=== PATIENT | male | born 1935 | race Caucasian/White ===

== ENCOUNTER 2022-03-20 09:45 | Outpatient (RCR) | payer MEDICARE, BC, SELFPAY ==
[2022-03-20 10:25] LABS: Basophils Percent Auto 1.6 % (0.0-3.0); Eosinophils Percent Auto 5.8 % (0.0-7.0); Hematocrit 34.8 % (37.0-53.0); Immature Granulocytes Abs Auto 0.01 K/uL (0.00-0.30); Lymphocytes Percent Auto 18.1 % (20-44); Mean Corpuscular HGB Conc 29 gm/dL (32-36); Mean Corpuscular Hemoglobin 29 pg (26-34); Mean Corpuscular Volume 102 fL (80-100); Monocytes Percent Auto 11.5 % (0.0-11.0); Neutrophils Percent Auto 62.6 % (42.0-72.0); Platelet Count* 350 K/uL (140-440); RDW Coefficient of Variation % 17.5 % (11.5-15.5); Red Blood Count 3.43 m/uL (4.30-5.90); White Blood Count* 2.43 K/uL (4.50-11.00)
[2022-03-20 10:26] LABS: Slide Review Reflex No
[2022-03-20 10:33] LABS: Albumin* 3.9 g/dL (3.3-5.0); Chloride* 109 mmol/L (96-114); Sodium* 139 mmol/L (135-149)
[2022-03-20 10:34] LABS: Potassium* 4.4 mmol/L (3.6-5.1)
[2022-03-20 10:35] LABS: Creatinine* 1.2 mg/dL (0.5-1.5); Estimated Glomerular Filt Rate 59 ml/min
[2022-03-20 10:36] LABS: Alanine Aminotransferase* 25 U/L (4-50); Alkaline Phosphatase* 135 U/L (40-150); Aspartate Amino Transferase* 30 U/L (12-35); Bilirubin Total* 0.4 mg/dL (0.1-1.5); Blood Urea Nitrogen* 28 mg/dL (7-30); Carbon Dioxide* 22 mmol/L (20-32); Glucose* 102 mg/dL (60-115); Lactate Dehydrogenase* 506 U/L (313-618); Total Protein* 6.3 g/dL (6.0-8.3)
[2022-03-20 10:37] LABS: Calcium* 8.4 mg/dL (8.4-10.6)
== END 2022-04-01 23:59 | disposition home or self-care (01) ==
LOC: CCIC 09:45
PROVIDERS: PCP Family Medicine; Visit Provider Internal Medicine Hematology & Oncology
DX: D45 Polycythemia vera (principal); R01.1 Cardiac murmur, unspecified; G62.9 Polyneuropathy, unspecified; M25.472 Effusion, left ankle; M25.471 Effusion, right ankle
CPT/HCPCS: 36415; 80053; 83615; 85025; 99212; 99213; 99214

== ENCOUNTER 2022-11-07 09:00 | Outpatient (RCR) | payer MEDICARE, BC, SELFPAY ==
[2022-05-16 10:03] LABS: Basophils Percent Auto 1.3 % (0.0-3.0); Eosinophils Percent Auto 9.1 % (0.0-7.0); Hematocrit 34.8 % (37.0-53.0); Hemoglobin* 9.8 gm/dL (13.5-17.5); Immature Granulocytes Abs Auto 0.02 K/uL (0.00-0.30); Lymphocytes Percent Auto 15.2 % (20-44); Mean Corpuscular HGB Conc 28 gm/dL (32-36); Mean Corpuscular Hemoglobin 26 pg (26-34); Mean Corpuscular Volume 94 fL (80-100); Monocytes Percent Auto 9.4 % (0.0-11.0); Neutrophils Percent Auto 64.4 % (42.0-72.0); Platelet Count* 485 K/uL (140-440); RDW Coefficient of Variation % 17.5 % (11.5-15.5); Red Blood Count 3.71 m/uL (4.30-5.90); White Blood Count* 3.09 K/uL (4.50-11.00)
[2022-05-16 10:04] LABS: Slide Review Reflex No
[2022-05-16 10:13] LABS: Albumin* 4.2 g/dL (3.3-5.0); Chloride* 107 mmol/L (96-114)
[2022-05-16 10:14] LABS: Potassium* 4.6 mmol/L (3.6-5.1); Sodium* 139 mmol/L (135-149)
[2022-05-16 10:16] LABS: Alkaline Phosphatase* 138 U/L (40-150); Aspartate Amino Transferase* 23 U/L (12-35); Bilirubin Total* 0.3 mg/dL (0.1-1.5); Blood Urea Nitrogen* 23 mg/dL (7-30); Carbon Dioxide* 23 mmol/L (20-32); Creatinine* 1.1 mg/dL (0.5-1.5); Estimated Glomerular Filt Rate 66 ml/min; Glucose* 92 mg/dL (60-115)
[2022-05-16 10:17] LABS: Alanine Aminotransferase* 16 U/L (4-50); Calcium* 8.7 mg/dL (8.4-10.6); Lactate Dehydrogenase* 483 U/L (313-618)
[2022-07-17 09:57] LABS: Basophils Percent Auto 2.5 % (0.0-3.0); Eosinophils Percent Auto 5.4 % (0.0-7.0); Hematocrit 32.5 % (37.0-53.0); Hemoglobin* 8.9 gm/dL (13.5-17.5); Immature Granulocytes Pct Auto 0.4 %; Lymphocytes Percent Auto 19.2 % (20-44); Mean Corpuscular HGB Conc 27 gm/dL (32-36); Mean Corpuscular Hemoglobin 25 pg (26-34); Mean Corpuscular Volume 91 fL (80-100); Monocytes Percent Auto 9.2 % (0.0-11.0); Neutrophils Percent Auto 63.3 % (42.0-72.0); Platelet Count* 493 K/uL (140-440); RDW Coefficient of Variation % 20.4 % (11.5-15.5); Red Blood Count 3.58 m/uL (4.30-5.90)
[2022-07-17 10:05] LABS: Slide Review Reflex No
[2022-07-17 10:22] LABS: Chloride* 105 mmol/L (96-114)
[2022-07-17 10:23] LABS: Albumin* 4.3 g/dL (3.3-5.0); Potassium* 4.3 mmol/L (3.6-5.1); Sodium* 140 mmol/L (135-149)
[2022-07-17 10:25] LABS: Creatinine* 1.2 mg/dL (0.5-1.5); Estimated Glomerular Filt Rate 59 ml/min
[2022-07-17 10:26] LABS: Alanine Aminotransferase* 23 U/L (4-50); Alkaline Phosphatase* 119 U/L (40-150); Aspartate Amino Transferase* 26 U/L (12-35); Bilirubin Total* 0.5 mg/dL (0.1-1.5); Blood Urea Nitrogen* 28 mg/dL (7-30); Calcium* 9.2 mg/dL (8.4-10.6); Carbon Dioxide* 24 mmol/L (20-32); Glucose* 106 mg/dL (60-115); Lactate Dehydrogenase* 192 U/L (120-246); Total Protein* 6.8 g/dL (6.0-8.3)
--- NOTE | 2022-07-18 12:06 | ONC.NURNOTE ---
Labs reviewed by Dr Mederos noted decreasing Hg trend for the past year Hydrea dose decreased to 1000mg, alternating with 500mg every other day Appt made with Dr Masters for evaluation of declining hemoglobin, with history of GI Bleed Records faxed to [phone] and [phone] Patient denies any change in stool, no blood noted and no change in pattern of stool Appt called to patient and Emmie
--- NOTE | 2022-08-01 15:39 | PC.NURSE ---
Pt's , Emmie, called today to report that labs were done at [facility] in yesterday and his hemoglobin was lower at 8.8. Pt's PCP sent them home with a [facility] and referral to [facility]. RN reiterated that is a good plan. Support offered.
[2022-09-13 10:50] LABS: Basophils Percent Auto 1.6 % (0.0-3.0); Eosinophils Percent Auto 6.5 % (0.0-7.0); Hematocrit 33.5 % (37.0-53.0); Hemoglobin* 9.1 gm/dL (13.5-17.5); Immature Granulocytes Pct Auto 1.2 %; Lymphocytes Percent Auto 15.3 % (20-44); Mean Corpuscular HGB Conc 27 gm/dL (32-36); Mean Corpuscular Hemoglobin 24 pg (26-34); Mean Corpuscular Volume 87 fL (80-100); Monocytes Percent Auto 6.5 % (0.0-11.0); Neutrophils Percent Auto 68.9 % (42.0-72.0); Platelet Count* 509 K/uL (140-440); RDW Coefficient of Variation % 21.3 % (11.5-15.5); Red Blood Count 3.85 m/uL (4.30-5.90); White Blood Count* 4.32 K/uL (4.50-11.00)
[2022-09-13 11:04] LABS: Albumin* 4.1 g/dL (3.3-5.0)
[2022-09-13 11:05] LABS: Chloride* 111 mmol/L (96-114); Potassium* 4.3 mmol/L (3.6-5.1); Sodium* 139 mmol/L (135-149)
[2022-09-13 11:07] LABS: Aspartate Amino Transferase* 47 U/L (12-35); Bilirubin Total* 0.5 mg/dL (0.1-1.5); Carbon Dioxide* 22 mmol/L (20-32); Estimated Glomerular Filt Rate 74 ml/min; Total Protein* 6.8 g/dL (6.0-8.3)
[2022-09-13 11:08] LABS: Alanine Aminotransferase* 26 U/L (4-50); Alkaline Phosphatase* 116 U/L (40-150); Blood Urea Nitrogen* 27 mg/dL (7-30); Glucose* 132 mg/dL (60-115); Lactate Dehydrogenase* 200 U/L (120-246)
[2022-09-13 11:41] LABS: Slide Review Reflex Yes
[2022-09-13 11:42] LABS: Slide Review Acceptable Review (Acceptable)
[2022-10-10 10:15] LABS: Basophils Absolute Auto 0.06 K/uL (0.00-0.30); Basophils Percent Auto 1.3 % (0.0-3.0); Eosinophils Absolute Auto 0.31 K/uL (0.00-0.50); Eosinophils Percent Auto 6.6 % (0.0-7.0); Hematocrit 34.7 % (37.0-53.0); Hemoglobin* 9.3 gm/dL (13.5-17.5); Immature Granulocytes Abs Auto 0.01 K/uL (0.00-0.30); Immature Granulocytes Pct Auto 0.2 %; Lymphocytes Percent Auto 13.8 % (20-44); Mean Corpuscular HGB Conc 27 gm/dL (32-36); Mean Corpuscular Hemoglobin 23 pg (26-34); Mean Corpuscular Volume 84 fL (80-100); Monocytes Percent Auto 6.8 % (0.0-11.0); Neutrophils Absolute Auto 3.36 K/uL (1.7-7.0); Neutrophils Percent Auto 71.3 % (42.0-72.0); Platelet Count* 980 K/uL (140-440); RDW Coefficient of Variation % 21.4 % (11.5-15.5); Red Blood Count 4.11 m/uL (4.30-5.90); White Blood Count* 4.71 K/uL (4.50-11.00)
[2022-10-10 10:18] LABS: Slide Review Reflex No
[2022-10-15 09:22] LABS: Basophils Absolute Auto 0.07 K/uL (0.00-0.30); Basophils Percent Auto 1.4 % (0.0-3.0); Eosinophils Absolute Auto 0.32 K/uL (0.00-0.50); Eosinophils Percent Auto 6.6 % (0.0-7.0); Hematocrit 33.9 % (37.0-53.0); Immature Granulocytes Abs Auto 0.03 K/uL (0.00-0.30); Immature Granulocytes Pct Auto 0.6 %; Lymphocytes Percent Auto 12.1 % (20-44); Mean Corpuscular HGB Conc 27 gm/dL (32-36); Mean Corpuscular Hemoglobin 23 pg (26-34); Mean Corpuscular Volume 85 fL (80-100); Monocytes Percent Auto 5.7 % (0.0-11.0); Neutrophils Percent Auto 73.6 % (42.0-72.0); RDW Coefficient of Variation % 21.4 % (11.5-15.5); Red Blood Count 3.97 m/uL (4.30-5.90); White Blood Count* 4.88 K/uL (4.50-11.00)
[2022-10-15 09:37] LABS: Platelet Count* 1046 K/uL (140-440); Slide Review Reflex Yes
[2022-10-15 09:40] LABS: Iron* 26 ug/dL (49-181)
[2022-10-15 09:50] LABS: Percent Iron Saturation 12 % (20-50); Total Iron Binding Capacity 224 ug/dL (261-462)
[2022-10-15 10:15] LABS: Ferritin* 83.3 ng/mL (17.9-464.0); Slide Review Acceptable Review (Acceptable)
--- NOTE | 2022-10-15 14:01 | ONC.NURNOTE ---
Dr. Kwong reviewed patient's blood work and would like patient to increase his Hydrea to 1000mg Saturday and and 500mg Jdg-Nomy-Swd-Sat-Sat Also would need his labs rechecked in 3 weeks. brian instructed and will start increase today.
[2022-11-07 09:12] LABS: Basophils Absolute Auto 0.07 K/uL (0.00-0.30); Basophils Percent Auto 1.4 % (0.0-3.0); Hematocrit 35.6 % (37.0-53.0); Hemoglobin* 9.3 gm/dL (13.5-17.5); Immature Granulocytes Abs Auto 0.01 K/uL (0.00-0.30); Immature Granulocytes Pct Auto 0.2 %; Lymphocytes Percent Auto 9.8 % (20-44); Mean Corpuscular HGB Conc 26 gm/dL (32-36); Mean Corpuscular Hemoglobin 22 pg (26-34); Mean Corpuscular Volume 83 fL (80-100); Monocytes Percent Auto 4.4 % (0.0-11.0); Neutrophils Percent Auto 76.2 % (42.0-72.0); Platelet Count* 849 K/uL (140-440); RDW Coefficient of Variation % 21.2 % (11.5-15.5); Red Blood Count 4.31 m/uL (4.30-5.90); White Blood Count* 5.01 K/uL (4.50-11.00)
[2022-11-07 09:14] LABS: Slide Review Reflex No
[2022-11-07 09:26] LABS: Albumin* 4.1 g/dL (3.3-5.0)
[2022-11-07 09:27] LABS: Chloride* 108 mmol/L (96-114); Potassium* 5.1 mmol/L (3.6-5.1); Sodium* 141 mmol/L (135-149)
[2022-11-07 09:29] LABS: Alkaline Phosphatase* 118 U/L (40-150); Aspartate Amino Transferase* 28 U/L (12-35); Bilirubin Total* 0.4 mg/dL (0.1-1.5); Blood Urea Nitrogen* 25 mg/dL (7-30); Carbon Dioxide* 26 mmol/L (20-32); Creatinine* 1.2 mg/dL (0.5-1.5); Estimated Glomerular Filt Rate 59 ml/min
[2022-11-07 09:30] LABS: Alanine Aminotransferase* 25 U/L (4-50); Calcium* 9.1 mg/dL (8.4-10.6); Glucose* 87 mg/dL (60-115); Lactate Dehydrogenase* 216 U/L (120-246)
--- NOTE | 2022-11-07 12:00 | ONC.NURNOTE ---
CBC results called to - platelets noted confirmed that patient is taking his low dose aspirin will follow up with provider tomorrow for next steps in hydrea management of elevated platelets
--- NOTE | 2022-11-08 15:51 | ONC.NURNOTE ---
lab results reviewed by Dr Izquierdo and called to Emmie patient to continue the same dose of 500mg every day but / takes 1000 mg/d repeat CBC in 2 weeks
== END 2022-11-12 23:59 | disposition home or self-care (01) ==
LOC: CCIC 09:00
PROVIDERS: Internal Medicine Hematology & Oncology; PCP Family Medicine; Referring Provider Family Medicine; Visit Provider Internal Medicine Hematology & Oncology
DX: D45 Polycythemia vera (principal)
CPT/HCPCS: 36415; 80053; 82728; 83540; 83550; 83615; 85025; 99212; 99213; 99214

== ENCOUNTER 2023-03-19 12:17 | Outpatient (CLI) | payer MEDICARE, BC, SELFPAY ==
--- NOTE | 2023-03-19 11:48 | W.ANESCHARGE ---
Anesthesia Charges Start Date/Time Anesthesia Start Date: 03/19/23 Stop Date/Time Anesthesia Stop Date: 03/19/23 Summary Extremes of Age - Over 70 or under 1: MDA
[2023-03-19 12:50] VITALS: BP 174/83; PULSE 96; RESP 16; TEMP 36.4; O2SAT 96; BMI 25.7
--- NOTE | 2023-03-19 13:30 | W.ANESCHARGE ---
Anesthesia Charges Start Date/Time Anesthesia Start Date: 03/19/23 Anesthesia Start Time: 13:14 Stop Date/Time Anesthesia Stop Date: 03/19/23 Anesthesia Stop Time: 13:53 Summary Extremes of Age - Over 70 or under 1: MDA
[2023-03-19 13:53] VITALS: BP 115/67; PULSE 84; RESP 16; O2SAT 95
--- NOTE | 2023-03-19 13:59 | W.ANESCHARGE ---
Anesthesia Charges Start Date/Time Anesthesia Start Date: 03/19/23 Anesthesia Start Time: 13:14 Stop Date/Time Anesthesia Stop Date: 03/19/23 Anesthesia Stop Time: 13:53
[2023-03-19 14:00] VITALS: BP 132/76; PULSE 83; RESP 16; O2SAT 96
[2023-03-19 14:04] LABS: Basophils Percent Auto 0.9 % (0.0-3.0); Eosinophils Percent Auto 8.2 % (0.0-7.0); Hematocrit 33.2 % (37.0-53.0); Hemoglobin* 9.6 gm/dL (13.5-17.5); Immature Reticulocyte Fraction 13.9 % (2.3-13.4); Lymphocytes Percent Auto 31.8 % (20-44); Mean Corpuscular HGB Conc 29 gm/dL (32-36); Mean Corpuscular Hemoglobin 26 pg (26-34); Mean Corpuscular Volume 89 fL (80-100); Monocytes Percent Auto 6.4 % (0.0-11.0); Neutrophils Percent Auto 52.7 % (42.0-72.0); Platelet Count* 324 K/uL (140-440); RDW Coefficient of Variation % 26.9 % (11.5-15.5); Red Blood Count 3.72 m/uL (4.30-5.90); Reticulocyte Hemoglobin Equivi 15.6 pg (29.0-35.0); Reticulocytes Absolute 0.04 # (0.03-0.08)
[2023-03-19 14:15] VITALS: BP 152/71; PULSE 87; RESP 16; O2SAT 98
[2023-03-19 14:32] LABS: Slide Review Acceptable Review (Acceptable); Slide Review Reflex Yes
--- NOTE | 2023-03-20 07:50 | PC.NURSE ---
At 0731, patient's spouse, Steffany, called stating Rico's dressing was okay last night, but had blood coming through the gauze. Approximately 1-1/2 inch diameter blood on gauze when he woke up this morning. Intake Specialist asked spouse to recheck, and she states the gauze is almost covered and she feels it's getting worse. Tegaderm is wrinkled and peeling off. Patient denies pain. Intake Specialist spoke with [facility] RN who states patient should try to get in to see primary care DOMINICK, within 2 hours, or go to the ER to be seen. Patient has known low platelets. Spouse notified and informed to go to try to get into primary care in the next two hours or go to the ER to be seen if primary is unavailable. Steffany understands to go to the ER or call 911 if at anytime she feels it's needed. Steffany verbalizes understanding of this plan.
== END 2023-03-19 14:43 | disposition home or self-care (01) ==
LOC: OP CLINIC 12:18
PROVIDERS: PCP Surgery; Visit Provider Internal Medicine Hematology & Oncology
DX: D75.9 Disease of blood and blood-forming organs, unspecified (principal)
CPT/HCPCS: 1112; 36415; 38222; 81120; 81121; 81245; 81246; 81310; 85025; 85045; 88184; 88185; 88237; 88264; 88305; 88311; 88313; 88341; 88342; 88360; 99100; J1644; J2001; J2704

== ENCOUNTER 2023-03-20 09:10 | Emergency (ER) | payer MEDICARE, BC, SELFPAY ==
[2023-03-20 09:22] VITALS: BP 173/87; PULSE 81; RESP 16; TEMP 36.6; O2SAT 92; BMI 25.7
--- NOTE | 2023-03-20 09:27 | ED.WOUNDLAC ---
HPI - Wound/Laceration General Time Seen by Provider: 09: Date Seen: 03/20/23 Chief Complaint: Laceration/Wound Stated Complaint: bone marrow wound bleeding Time Seen by Provider: 03/20/23 09:27 Source: patient, RN notes reviewed and old records reviewed Mode of arrival: wheelchair Limitations: no limitations History of Present Illness HPI narrative: Patient is a very pleasant 88-year-old male with history of recent bone marrow biopsy, polycythemia vera who comes to the emergency room for evaluation of bleeding from biopsy site. Yesterday Rico had a biopsy on his low back. Same-day surgery was contacted today after it was noted that he had a large amount of dried blood on the dressing which was essentially multiple 2 x 2 gauze dressings. Unfortunately they attempted to follow-up at the clinic per same-day surgery suggestion and were told to come to the emergency room as they could not accommodate this patient. Patient notes no pain, fever. He otherwise has no complaints. Related Data Home Medications Medication Instructions Recorded Confirmed atorvastatin 80 mg tablet 80 mg PO QPM 03/19/22 03/20/23 dorzolamide 22.3 mg-timolol 6.8 1 drp ophthalmic (eye) BID 03/19/22 03/20/23 mg/mL eye drops famotidine 20 mg tablet 20 mg PO BID 03/19/22 03/20/23 finasteride 5 mg tablet 5 mg PO DAILY 03/19/22 03/20/23 furosemide 20 mg tablet 20 mg PO QDAY 03/19/22 03/20/23 latanoprost 0.005 % eye drops 1 drp ophthalmic (eye) QPM 03/19/22 03/20/23 losartan 100 mg tablet 100 mg PO DAILY 03/19/22 03/20/23 nifedipine 30 mg tablet,extended 30 mg PO DAILY 03/19/22 03/20/23 release acetaminophen 500 mg tablet 500 mg PO BID PRN 01/28/23 03/20/23 cyanocobalamin (vitamin B-12) 1,000 mcg IM Q4W 01/28/23 03/20/23 1,000 mcg/mL injection solution hydroxyurea 500 mg capsule 500 mg PO Q48H 01/28/23 03/20/23 vitamins A,C,S-mjon-xidngk 4,296 1 cap PO BID 01/28/23 03/20/23 mcg-226 mg-90 mg capsule (PreserVision AREDS) hydroxyurea 500 mg capsule 500 mg PO QDAY 02/21/23 03/20/23 Allergies Allergy/AdvReac Type Severity Reaction Status Date / Time tamsulosin AdvReac Heartburn Verified 03/20/23 09:20 Review of Systems Narrative: No fever, pain, redness, ongoing bleeding. [facility] Medical History (Updated 02/21/23 @ 09:36 by Pilar Mederos MD) Polycythemia vera ?D45 - Polycythemia vera (ICD-10) Cat scratch ?W55.03XA - Scratched by cat, initial encounter (ICD-10) Aortic stenosis ?I35.0 - Nonrheumatic aortic (valve) stenosis (ICD-10) Cognitive impairment ?R41.89 - Other symptoms and signs involving cognitive functions and awareness (ICD-10) Macular degeneration ?H35.30 - Unspecified macular degeneration (ICD-10) Lower extremity edema ?R60.0 - Localized edema (ICD-10) Foreign body (FB) in soft tissue ?M79.5 - Residual foreign body in soft tissue (ICD-10) Hx of colonic polyp ?Z86.010 - Personal history of colonic polyps (ICD-10) Posterior vitreous detachment ?H43.819 - Vitreous degeneration, unspecified eye (ICD-10) Impaired fasting glucose ?R73.01 - Impaired fasting glucose (ICD-10) Barretts esophagus ?K22.70 - Shane's esophagus without dysplasia (ICD-10) Elevated PSA ?R97.20 - Elevated prostate specific antigen [PSA] (ICD-10) Hyperlipidemia ?E78.5 - Hyperlipidemia, unspecified (ICD-10) Former tobacco use ?Z87.891 - Personal history of nicotine dependence (ICD-10) Squamous cell skin cancer ?C44.92 - Squamous cell carcinoma of skin, unspecified (ICD-10) BPH (benign prostatic hyperplasia) ?N40.0 - Benign prostatic hyperplasia without lower urinary tract symptoms (ICD-10) HTN (hypertension) ?I10 - Essential (primary) hypertension (ICD-10) Hx of deep venous thrombosis ?Z86.718 - Personal history of other venous thrombosis and embolism (ICD-10) PVD (peripheral vascular disease) ?I73.9 - Peripheral vascular disease, unspecified (ICD-10) Esophageal cancer ?C15.9 - Malignant neoplasm of esophagus, unspecified (ICD-10) GIB (gastrointestinal bleeding) ?K92.2 - Gastrointestinal hemorrhage, unspecified (ICD-10) Surgical History (Updated 01/28/23 @ 00:24 by Reuben Adler MD) History of left inguinal hernia repair ?Z98.890 - Other specified postprocedural states (ICD-10) ?Z87.19 - Personal history of other diseases of the digestive system (ICD-10) History of cholecystectomy ?Z90.49 - Acquired absence of other specified parts of digestive tract (ICD-10) H/O hemicolectomy ?Z90.49 - Acquired absence of other specified parts of digestive tract (ICD-10) Status post femorotibial bypass ?Z98.890 - Other specified postprocedural states (ICD-10) History of esophagectomy ?Z98.890 - Other specified postprocedural states (ICD-10) ?Z90.49 - Acquired absence of other specified parts of digestive tract (ICD-10) Family History (Updated 01/28/23 @ 00:33 by Reuben Adler MD) Mother Diabetes Father Stroke Social History (Updated 01/28/23 @ 00:34 by Reuben Adler MD) Narrative: 87-year-old male lives with his . Lives independently. notes that his memory has been failing. This is not been formally evaluated in the past. She sets up and administers all his medications and to make sure he is taking them as prescribed. He walks with a walker. Has been fairly independent with that until this afternoon when he was too weak. They live together independently in their own home. Code status is DNR. 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 He quit smoking about 7 years ago. He rarely drinks alcohol. Highest level of school completed/degree received: 10th grade Smoking Status: Former smoker What tobacco products do you use: cigarettes Smoking packs per day: 30 Smoking cigarettes per day: 600.0 Smoking quit date/years: <= 15 years ago Do you use any of these nicotine containing products: None Second hand tobacco smoke exposure: No How often do you have a drink containing alcohol: monthly or less How often do you have six or more drinks on one occasion: Never AUDIT-C Alcohol total score: 1 Non-prescribed substance use: denies use Caffeine: Yes (5-6 CUPS COFFEE/DAY) service: No Exam Narrative: Exam Narrative: Alert and oriented. No acute distress. Respiratory distress. Examination of the back shows a blood-stained gauze just to the right of the spine at approximately T12/L1. This is removed. There is no blood noted on skin. I see a 4 mm superficial surgical wound. No surrounding erythema. No edema or fluctuance. I do gently palpate around this area and no blood is expressed from the wound. A Band-Aid is then applied to this area. Const: Vital Signs, click to edit/add: Vital Signs - 24 hr 03/20/23 09:22 Temperature 97.9 F Pulse Rate [Pulse Oximeter] 81 Respiratory Rate 16 Blood Pressure [Le ft Upper Arm] 173/87 H Pulse Oximetry 92 Oxygen Delivery Me thod Room Air Documenting provider has reviewed patient's vital signs: yes Course Course Hospital Course: Patient's did mention ?a count of 1?. I did look and platelets are within normal limits but white count is quite low. Again, no evidence of infection at this time. Vital Signs Vital signs: Initial Vital Signs Temperature 97.9 F 03/20/23 09:22 Temperature Source Temporal Artery Scan 03/20/23 09:22 Pulse Rate 81 03/20/23 09:22 Pulse Rhythm Regular 03/20/23 09:22 Pulse Strength 3+ Normal 03/20/23 09:22 Respiratory Rate 16 03/20/23 09:22 Blood Pressure 173/87 H 03/20/23 09:22 Blood Pressure Mean 115 H 03/20/23 09:22 Blood Pressure Position Sitting 03/20/23 09:22 Pulse Oximetry 92 03/20/23 09:22 Oxygen Delivery Method Room Air 03/20/23 09:22 Vital Signs Temperature 97.9 F 03/20/23 09:22 Pulse Rate 81 03/20/23 09:22 Respiratory Rate 16 03/20/23 09:22 Blood Pressure 173/87 H 03/20/23 09:22 Pulse Oximetry 92 03/20/23 09:22 Oxygen Delivery Method Room Air 03/20/23 09:22 Temperature 97.9 F 03/20/23 09:22 Pulse Rate 81 03/20/23 09:22 Respiratory Rate 16 03/20/23 09:22 Blood Pressure 173/87 H 03/20/23 09:22 Pulse Oximetry 92 03/20/23 09:22 Oxygen Delivery Method Room Air 03/20/23 09:22 MDM - Wound/Laceration MDM Narrative Medical decision making narrative: 1. Surgical wound bleeding-hemostatic at this time with no evidence of erythema infection or retained hematoma. I did place Band-Aid in place instructed patient's to change this twice a day. Continue to monitor and return for increased bleeding. 2. Disposition-home at this time. Medical Records Attestation: I reviewed the patient's medical records. Lab Data Attestation: I reviewed the patient's lab results. Discharge Plan Discharge Prescriptions: No Action atorvastatin 80 mg tablet 80 mg PO QPM dorzolamide-timolol 22.3-6.8 mg/mL drops 1 drp ophthalmic (eye) BID famotidine 20 mg tablet 20 mg PO BID finasteride 5 mg tablet 5 mg PO DAILY furosemide 20 mg tablet 20 mg PO QDAY latanoprost 0.005 % drops 1 drp ophthalmic (eye) QPM losartan 100 mg tablet 100 mg PO DAILY nifedipine 30 mg tablet extended release 30 mg PO DAILY hydroxyurea 500 mg capsule 500 mg PO QDAY Hold Instructions: Doctor's Order Patient Comments: ALTERNATE 1000MG (2 CAPS) EVERY OTHER DAY WITH 500MG (1 CAP) EVERY OTHER DAY acetaminophen 500 mg tablet 500 mg PO BID PRN PreserVision AREDS 4,296 mcg-226 mg-90 mg capsule 1 cap PO BID hydroxyurea 500 mg capsule 500 mg PO Q48H Hold Instructions: Doctor's Order Rx Instructions: ALTERNATE 1000MG (2 CAPS) EVERY OTHER DAY WITH 500MG (1 CAP) EVERY OTHER DAY cyanocobalamin (vitamin B-12) 1,000 mcg/mL solution 1,000 mcg IM Q4W Follow Up/Referrals: Demarcus Sims MD [Primary Care Provider] -
== END 2023-03-20 09:53 | disposition home or self-care (01) ==
PROVIDERS: Emergency Provider Family Medicine; PCP Surgery
DX: L76.22 Postprocedural hemorrhage of skin and subcutaneous tissue following other procedure (principal)
CPT/HCPCS: 99282

== ENCOUNTER 2023-05-14 10:00 | Outpatient (RCR) | payer MEDICARE, BC, SELFPAY ==
[2022-11-21 09:55] LABS: Basophils Absolute Auto 0.05 K/uL (0.00-0.30); Eosinophils Percent Auto 8.7 % (0.0-7.0); Hemoglobin* 10.1 gm/dL (13.5-17.5); Immature Granulocytes Abs Auto 0.02 K/uL (0.00-0.30); Immature Granulocytes Pct Auto 0.4 %; Mean Corpuscular HGB Conc 27 gm/dL (32-36); Mean Corpuscular Hemoglobin 21 pg (26-34); Mean Corpuscular Volume 81 fL (80-100); Monocytes Percent Auto 3.9 % (0.0-11.0); Platelet Count* 692 K/uL (140-440); RDW Coefficient of Variation % 21.1 % (11.5-15.5); Red Blood Count 4.72 m/uL (4.30-5.90); White Blood Count* 4.83 K/uL (4.50-11.00)
[2022-11-21 10:00] LABS: Slide Review Reflex No
--- NOTE | 2022-11-27 16:06 | ONC.NURNOTE ---
Emmie called to report challenges with ongoing peripheral neuropathy patient has had for many years and had been on gabapentin without improvement recent visit with neurology proved to not be helpful asked about out options and if acupuncture is worth a try clinical writer provided info that [facility] [place] has an acupunturist and she is going to try to set up appt other options- capsician cream (they have), voltaran topical (they have) PCP Dr Sims out of the office, so patient was looking to listen and support
[2022-12-05 10:22] LABS: Basophils Absolute Auto 0.05 K/uL (0.00-0.30); Basophils Percent Auto 1.1 % (0.0-3.0); Eosinophils Percent Auto 7.9 % (0.0-7.0); Hematocrit 37.2 % (37.0-53.0); Hemoglobin* 10.2 gm/dL (13.5-17.5); Immature Granulocytes Abs Auto 0.02 K/uL (0.00-0.30); Immature Granulocytes Pct Auto 0.4 %; Lymphocytes Percent Auto 11.8 % (20-44); Mean Corpuscular HGB Conc 27 gm/dL (32-36); Mean Corpuscular Hemoglobin 22 pg (26-34); Mean Corpuscular Volume 80 fL (80-100); Monocytes Percent Auto 3.5 % (0.0-11.0); Neutrophils Percent Auto 75.3 % (42.0-72.0); Platelet Count* 646 K/uL (140-440); RDW Coefficient of Variation % 21.6 % (11.5-15.5); White Blood Count* 4.57 K/uL (4.50-11.00)
[2022-12-05 10:42] LABS: Slide Review Reflex Yes
[2022-12-05 10:43] LABS: Slide Review Acceptable Review (Acceptable)
[2022-12-05 10:45] LABS: Red Blood Count 4.66 m/uL (4.30-5.90)
[2022-12-19 11:29] LABS: Basophils Percent Auto 1.1 % (0.0-3.0); Eosinophils Percent Auto 8.1 % (0.0-7.0); Hematocrit 38.1 % (37.0-53.0); Hemoglobin* 10.5 gm/dL (13.5-17.5); Immature Granulocytes Pct Auto 0.3 %; Mean Corpuscular HGB Conc 28 gm/dL (32-36); Mean Corpuscular Hemoglobin 22 pg (26-34); Mean Corpuscular Volume 80 fL (80-100); Monocytes Percent Auto 3.6 % (0.0-11.0); Neutrophils Percent Auto 69.9 % (42.0-72.0); Platelet Count* 583 K/uL (140-440); RDW Coefficient of Variation % 22.3 % (11.5-15.5); Red Blood Count 4.74 m/uL (4.30-5.90); White Blood Count* 3.58 K/uL (4.50-11.00)
[2022-12-19 11:38] LABS: Slide Review Reflex No
[2022-12-19 11:46] LABS: Chloride* 110 mmol/L (96-114); Potassium* 4.1 mmol/L (3.6-5.1); Sodium* 141 mmol/L (135-149)
[2022-12-19 11:48] LABS: Aspartate Amino Transferase* 36 U/L (12-35); Bilirubin Total* 0.3 mg/dL (0.1-1.5); Carbon Dioxide* 23 mmol/L (20-32); Creatinine* 1.1 mg/dL (0.5-1.5); Estimated Glomerular Filt Rate 66 ml/min; Total Protein* 6.9 g/dL (6.0-8.3)
[2022-12-19 11:49] LABS: Alanine Aminotransferase* 35 U/L (4-50); Alkaline Phosphatase* 104 U/L (40-150); Blood Urea Nitrogen* 22 mg/dL (7-30); Calcium* 8.9 mg/dL (8.4-10.6); Glucose* 120 mg/dL (60-115); Lactate Dehydrogenase* 201 U/L (120-246)
[2023-01-15 11:20] LABS: Basophils Percent Auto 0.9 % (0.0-3.0); Eosinophils Percent Auto 8.1 % (0.0-7.0); Hematocrit 37.2 % (37.0-53.0); Hemoglobin* 10.4 gm/dL (13.5-17.5); Immature Granulocytes Pct Auto 0.4 %; Lymphocytes Percent Auto 27.8 % (20-44); Mean Corpuscular HGB Conc 28 gm/dL (32-36); Mean Corpuscular Hemoglobin 23 pg (26-34); Mean Corpuscular Volume 82 fL (80-100); Monocytes Percent Auto 4.5 % (0.0-11.0); Neutrophils Percent Auto 58.3 % (42.0-72.0); Platelet Count* 406 K/uL (140-440); RDW Coefficient of Variation % 23.5 % (11.5-15.5); Red Blood Count 4.53 m/uL (4.30-5.90); White Blood Count* 2.23 K/uL (4.50-11.00)
[2023-01-15 11:23] LABS: Slide Review Reflex No
--- NOTE | 2023-01-15 14:02 | ONC.NURNOTE ---
Addendum entered by Meghna De Leon RN 01/17/23 15:03: dose adjustment called to Emmie reduce to 500mg daily with lab in 4 weeks appts have been scheduled Original Note: Left message to call for lab results platelets and WBC noted Dr Mederos to review on Thrusday
[2023-02-13 09:16] LABS: Basophils Percent Auto 0.5 % (0.0-3.0); Eosinophils Percent Auto 6.7 % (0.0-7.0); Hematocrit 36.4 % (37.0-53.0); Hemoglobin* 10.3 gm/dL (13.5-17.5); Lymphocytes Percent Auto 31.8 % (20-44); Mean Corpuscular HGB Conc 28 gm/dL (32-36); Mean Corpuscular Hemoglobin 24 pg (26-34); Mean Corpuscular Volume 84 fL (80-100); Monocytes Percent Auto 3.1 % (0.0-11.0); Neutrophils Percent Auto 57.9 % (42.0-72.0); Platelet Count* 265 K/uL (140-440); RDW Coefficient of Variation % 25.8 % (11.5-15.5); Red Blood Count 4.32 m/uL (4.30-5.90)
[2023-02-13 09:37] LABS: Albumin* 4.2 g/dL (3.3-5.0); Chloride* 106 mmol/L (96-114)
[2023-02-13 09:38] LABS: Potassium* 4.6 mmol/L (3.6-5.1); Sodium* 140 mmol/L (135-149)
[2023-02-13 09:40] LABS: Alkaline Phosphatase* 121 U/L (40-150); Aspartate Amino Transferase* 35 U/L (12-35); Bilirubin Total* 0.5 mg/dL (0.1-1.5); Blood Urea Nitrogen* 24 mg/dL (7-30); Carbon Dioxide* 23 mmol/L (20-32); Creatinine* 1.2 mg/dL (0.5-1.5); Estimated Glomerular Filt Rate 59 ml/min; Lactate Dehydrogenase* 228 U/L (120-246); Total Protein* 7.2 g/dL (6.0-8.3)
[2023-02-13 09:41] LABS: Alanine Aminotransferase* 27 U/L (4-50); Calcium* 9.3 mg/dL (8.4-10.6); Glucose* 130 mg/dL (60-115)
[2023-02-13 10:24] LABS: Slide Review Reflex Yes; White Blood Count* 1.95 K/uL (4.50-11.00)
[2023-02-13 10:30] LABS: Slide Review Acceptable Review (Acceptable)
--- NOTE | 2023-02-18 14:16 | ONC.NURNOTE ---
Lab reviewed with per Dr Mederos- rec follow up to discuss BM Bx appt set for 02/21/23
[2023-02-21 10:08] LABS: Red Blood Count 3.95 m/uL (4.30-5.90); White Blood Count* 1.37 K/uL (4.50-11.00)
[2023-02-21 10:09] LABS: Basophils Percent Auto 0.7 % (0.0-3.0); Eosinophils Percent Auto 7.3 % (0.0-7.0); Hematocrit 33.9 % (37.0-53.0); Hemoglobin* 9.6 gm/dL (13.5-17.5); Lymphocytes Percent Auto 37.2 % (20-44); Mean Corpuscular HGB Conc 28 gm/dL (32-36); Mean Corpuscular Hemoglobin 24 pg (26-34); Mean Corpuscular Volume 86 fL (80-100); Monocytes Percent Auto 5.8 % (0.0-11.0); Neutrophils Percent Auto 48.3 % (42.0-72.0); Platelet Count* 247 K/uL (140-440)
[2023-02-21 10:10] LABS: Immature Granulocytes Pct Auto 0.7 %; Slide Review Reflex Yes
[2023-02-21 10:11] LABS: Slide Review Acceptable Review (Acceptable)
[2023-02-28 08:59] LABS: Hematocrit 33.4 % (37.0-53.0); Hemoglobin* 9.4 gm/dL (13.5-17.5); Lymphocytes Percent Auto 35.6 % (20-44); Mean Corpuscular HGB Conc 28 gm/dL (32-36); Mean Corpuscular Hemoglobin 25 pg (26-34); Mean Corpuscular Volume 88 fL (80-100); Monocytes Percent Auto 5.9 % (0.0-11.0); Neutrophils Percent Auto 49.6 % (42.0-72.0); Platelet Count* 231 K/uL (140-440); Red Blood Count 3.81 m/uL (4.30-5.90)
[2023-02-28 09:00] LABS: Eosinophils Percent Auto 7.9 % (0.0-7.0); Slide Review Reflex Yes
[2023-02-28 09:01] LABS: White Blood Count* 1.01 K/uL (4.50-11.00)
[2023-02-28 09:02] LABS: Slide Review Acceptable Review (Acceptable)
--- NOTE | 2023-02-28 09:48 | ONC.NURNOTE ---
WBC1.01 with ANC of 0.50--At this time Dr. Izquierdo would like patient to hold Hydrea and hold off on prophalytic antibiotics for now and recheck CBC in 2 weeks and if still low or dropping a bone marrow order is filled out and needs to be sent. notified
[2023-03-14 08:53] LABS: Basophils Percent Auto 0.9 % (0.0-3.0); Eosinophils Percent Auto 7.5 % (0.0-7.0); Hematocrit 32.2 % (37.0-53.0); Hemoglobin* 9.1 gm/dL (13.5-17.5); Lymphocytes Percent Auto 34.6 % (20-44); Mean Corpuscular HGB Conc 28 gm/dL (32-36); Mean Corpuscular Hemoglobin 25 pg (26-34); Mean Corpuscular Volume 90 fL (80-100); Monocytes Percent Auto 3.7 % (0.0-11.0); Neutrophils Percent Auto 53.3 % (42.0-72.0); Platelet Count* 270 K/uL (140-440); RDW Coefficient of Variation % 27.1 % (11.5-15.5); Red Blood Count 3.59 m/uL (4.30-5.90)
[2023-03-14 09:23] LABS: White Blood Count* 1.07 K/uL (4.50-11.00)
[2023-03-14 09:24] LABS: Slide Review Reflex Yes
[2023-03-14 09:25] LABS: Slide Review Acceptable Review (Acceptable)
--- NOTE | 2023-03-14 14:05 | ONC.NURNOTE ---
Results of lab called to Emmie discussed recommendation for BMBX preprocedure instructions reviewed Emmie will call [facility] to set up appt with a provider for preop clearance
--- NOTE | 2023-03-19 15:55 | ONC.NURNOTE ---
Patient's Emmie called to determine if patient needs to come in for lab draw this . Per clinic nurse, patient needs weekly labs. It works best for patient to come in next , so he was scheduled this day. Patient has follow up scheduled 04/17, per clinic nurse, she was told that some of results will take 3 weeks to get back. Patient's spouse told that if results come back sooner, we will try to move patient up in the schedule.
--- NOTE | 2023-03-21 16:25 | PC.NURSE ---
Received a call from Dr. Eran Santos, pathologist, with preliminary results that pt's BMBX shows acute leukemia. MD will call Dr. Mederos directly with details.
--- NOTE | 2023-03-27 08:43 | ONC.NURNOTE ---
Rico's called stating Rico has made the decision to have his Blood work followed. He wishes to receive plts or blood products if needed. He states no other treatment.
[2023-04-04 09:02] VITALS: BP 107/70; PULSE 67; RESP 16; TEMP 36.1; O2SAT 100
[2023-04-04 09:21] LABS: Eosinophils Percent Auto 8.9 % (0.0-7.0); Hematocrit 29.1 % (37.0-53.0); Hemoglobin* 8.4 gm/dL (13.5-17.5); Lymphocytes Percent Auto 22.8 % (20-44); Mean Corpuscular HGB Conc 29 gm/dL (32-36); Mean Corpuscular Hemoglobin 26 pg (26-34); Mean Corpuscular Volume 91 fL (80-100); Monocytes Percent Auto 6.9 % (0.0-11.0); Neutrophils Percent Auto 60.4 % (42.0-72.0); Platelet Count* 306 K/uL (140-440); RDW Coefficient of Variation % 26.6 % (11.5-15.5)
[2023-04-04 09:43] LABS: White Blood Count* 1.01 K/uL (4.50-11.00)
[2023-04-04 09:44] LABS: Slide Review Reflex Yes
[2023-04-04 09:53] LABS: Slide Review Acceptable Review (Acceptable)
--- NOTE | 2023-04-04 10:03 | PC.NURSE ---
Called pt today with lab results. Spoke with his . No changes at this time. Chart will be reviewed by Dr. Mederos and next lab and MD visit are scheduled for 04/17/2023.
[2023-04-17 08:53] VITALS: BP 116/58; PULSE 83; RESP 20; TEMP 36.4; O2SAT 93
[2023-04-17 09:27] LABS: Basophils Percent Auto 1.3 % (0.0-3.0); Eosinophils Percent Auto 7.6 % (0.0-7.0); Hematocrit 28.2 % (37.0-53.0); Hemoglobin* 8.3 gm/dL (13.5-17.5); Immature Granulocytes Pct Auto 5.1 %; Lymphocytes Percent Auto 30.4 % (20-44); Mean Corpuscular HGB Conc 29 gm/dL (32-36); Mean Corpuscular Hemoglobin 27 pg (26-34); Mean Corpuscular Volume 92 fL (80-100); Monocytes Percent Auto 10.1 % (0.0-11.0); Neutrophils Percent Auto 45.5 % (42.0-72.0); Platelet Count* 237 K/uL (140-440); RDW Coefficient of Variation % 24.9 % (11.5-15.5); Red Blood Count 3.06 m/uL (4.30-5.90)
[2023-04-17 09:46] LABS: Albumin* 3.8 g/dL (3.3-5.0); Chloride* 109 mmol/L (96-114)
[2023-04-17 09:47] LABS: Potassium* 4.4 mmol/L (3.6-5.1); Sodium* 140 mmol/L (135-149)
[2023-04-17 09:49] LABS: Alkaline Phosphatase* 121 U/L (40-150); Aspartate Amino Transferase* 32 U/L (12-35); Bilirubin Total* 0.4 mg/dL (0.1-1.5); Blood Urea Nitrogen* 35 mg/dL (7-30); Carbon Dioxide* 17 mmol/L (20-32); Creatinine* 1.4 mg/dL (0.5-1.5); Est. Creatinine Clearance* 29.25; Estimated Glomerular Filt Rate 49 ml/min; Glucose* 128 mg/dL (60-115); Total Protein* 6.4 g/dL (6.0-8.3)
[2023-04-17 09:50] LABS: Alanine Aminotransferase* 24 U/L (4-50); Calcium* 8.7 mg/dL (8.4-10.6); Lactate Dehydrogenase* 301 U/L (120-246)
[2023-04-17 09:55] LABS: Slide Review Reflex No; White Blood Count* 0.79 K/uL (4.50-11.00)
--- NOTE | 2023-04-18 09:45 | PC.NURSE ---
Addendum entered by Nancy Benson RN 04/18/23 13:27: RN also reviewed pt's follow-up lab and provider visits on 05/15/2023. Emmie verbalized understanding. Original Note: Pt was present at [facility] yesterday for labs and provider visit. See Nataliya Aponte APRN's note for details. RN spoke with RN at Dr. Sims's office and faxed POST and provider note. Updated PCP RN about extra Lasix doses yesterday and Saturday. Updated PCP RN about request for initiating home care and it was suggested that pt may need to see MD to have those referral orders placed. Updated PCP RN about weekly CBC labs and asked that if visit with Dr. Sims is next week, if CBC could be done at [facility] to save Rico a trip. RN agreed to update this securities underwriter as to appt date/time to finalize lab plans for next week. Called Rico Olea's , with the above update. Support offered.
--- NOTE | 2023-04-23 12:31 | PC.NURSE ---
Contacted pt's , Emmie, this morning to check in after PCP visit yesterday at [facility]. Emmie shares that Home Hospice was consulted and will come to their home tomorrow morning for an admission. Rico still wishes to continue getting labs checked occasionally and would like to have a blood transfusion if indicated. RN advised Emmie to discuss with Hospice tomorrow morning. Pt is scheduled to come to [facility] for CBC on 05/01/2023. No labs were done yesterday at PCP appt. Support offered.
[2023-04-25 09:59] LABS: Basophils Percent Auto 1.4 % (0.0-3.0); Eosinophils Percent Auto 5.6 % (0.0-7.0); Hematocrit 27.9 % (37.0-53.0); Hemoglobin* 8.2 gm/dL (13.5-17.5); Lymphocytes Percent Auto 40.8 % (20-44); Mean Corpuscular HGB Conc 29 gm/dL (32-36); Mean Corpuscular Hemoglobin 28 pg (26-34); Mean Corpuscular Volume 94 fL (80-100); Monocytes Percent Auto 12.7 % (0.0-11.0); Neutrophils Percent Auto 39.5 % (42.0-72.0); Platelet Count* 185 K/uL (140-440); Red Blood Count 2.97 m/uL (4.30-5.90)
[2023-04-25 10:24] LABS: White Blood Count* 0.71 K/uL (4.50-11.00)
[2023-04-25 10:25] LABS: Slide Review Reflex Yes
[2023-04-25 10:27] LABS: Slide Review Acceptable Review (Acceptable)
--- NOTE | 2023-04-25 15:36 | ONC.NURNOTE ---
Lab results called to Emmie- Hg stable at 8.2 WBC noted and risk of infection reviewed
[2023-05-01 09:48] LABS: Basophils Percent Auto 1.4 % (0.0-3.0); Eosinophils Percent Auto 5.7 % (0.0-7.0); Hemoglobin* 8.3 gm/dL (13.5-17.5); Lymphocytes Percent Auto 38.6 % (20-44); Mean Corpuscular HGB Conc 29 gm/dL (32-36); Mean Corpuscular Hemoglobin 27 pg (26-34); Mean Corpuscular Volume 95 fL (80-100); Monocytes Percent Auto 17.1 % (0.0-11.0); Neutrophils Percent Auto 37.2 % (42.0-72.0); Platelet Count* 177 K/uL (140-440); RDW Coefficient of Variation % 23.6 % (11.5-15.5); Red Blood Count 3.05 m/uL (4.30-5.90)
[2023-05-01 09:53] LABS: Slide Review Reflex Yes
[2023-05-01 10:25] LABS: Slide Review Acceptable Review (Acceptable)
--- NOTE | 2023-05-01 11:09 | ONC.NURNOTE ---
Lab results noted and called to Emmie as stable from last week Emmie is noting some increase in fatigue- but otherwise fairly stable
[2023-05-08 09:50] LABS: Hematocrit 26.4 % (37.0-53.0); Mean Corpuscular HGB Conc 29 gm/dL (32-36); Mean Corpuscular Hemoglobin 28 pg (26-34); Mean Corpuscular Volume 96 fL (80-100); Platelet Count* 141 K/uL (140-440); RDW Coefficient of Variation % 22.9 % (11.5-15.5); Red Blood Count 2.75 m/uL (4.30-5.90)
[2023-05-08 10:26] LABS: Hemoglobin* 7.6 gm/dL (13.5-17.5); Slide Review Reflex Req Man Differential; White Blood Count* 0.72 K/uL (4.50-11.00)
[2023-05-08 10:28] LABS: Total Cells Counted 100
--- NOTE | 2023-05-08 11:48 | ONC.NURNOTE ---
noted Hg 7.6 called to Emmie- Discussed option of transfusion on Saturday or Saturday Rico reports leg weakness and fatigue denies rapid HR or increase in SOB, no light headedness Emmie was advised to call to schedule a transfusion before the weekend if above noted symptoms develop or worsen Emmie understands to call
--- NOTE | 2023-05-13 09:46 | ONC.NURNOTE ---
Received call from pt's Emmie that pt is ready for a blood transfusion and is also ready to pursue hospice other than [facility]. Reviewed with Nataliya Valenzuela APRN; 1 unit of PRBC to be given Maite 05/14. Emmie to f/u with Dr. Sims for care to be set up with [facility]; f/u appt and labs with Nataliya 05/15 cancelled.
[2023-05-14 11:07] VITALS: BP 110/69; PULSE 81; RESP 18; TEMP 36.4; O2SAT 98
[2023-05-14 12:07] VITALS: BP 110/69; PULSE 81; RESP 18; TEMP 36.4; O2SAT 98
[2023-05-14 12:24] VITALS: BP 143/76; PULSE 69; RESP 16; TEMP 36.4; O2SAT 96
[2023-05-14 13:09] VITALS: BP 150/83; PULSE 84; RESP 16; TEMP 36.4; O2SAT 95
[2023-05-14 14:47] VITALS: BP 148/81; PULSE 83; RESP 16; TEMP 36.8; O2SAT 96
[2023-05-14 15:30] VITALS: BP 154/81; PULSE 87; RESP 15; TEMP 36.6; O2SAT 95
== END 2023-05-20 23:59 | disposition home or self-care (01) ==
LOC: CCIC 10:00
PROVIDERS: Clinical Nurse Specialist; Internal Medicine Hematology & Oncology; PCP Surgery; Referring Provider Surgery; Visit Provider Internal Medicine Hematology & Oncology
DX: C92.00 Acute myeloblastic leukemia, not having achieved remission (principal)
CPT/HCPCS: 36415; 36430; 80053; 83615; 85025; 86850; 86900; 86901; 86922; 99211; 99212; 99214; 99215; P9016

== ENCOUNTER 2023-05-22 09:38 | Outpatient (RCR) | payer MEDICARE, BC, SELFPAY ==
[2023-05-22 10:04] LABS: Hemoglobin* 8.5 gm/dL (13.5-17.5); Mean Corpuscular HGB Conc 30 gm/dL (32-36); Mean Corpuscular Hemoglobin 28 pg (26-34); Mean Corpuscular Volume 93 fL (80-100); RDW Coefficient of Variation % 21.1 % (11.5-15.5)
[2023-05-22 10:51] LABS: Slide Review Reflex Yes
[2023-05-22 10:52] LABS: White Blood Count* 1.51 K/uL (4.50-11.00)
[2023-05-22 10:53] LABS: Slide Review Req Man Differential (Acceptable)
[2023-05-22 10:54] LABS: Total Cells Counted 100
[2023-05-22 10:57] LABS: Large Platelets Moderate; Platelet Count* 63 K/uL (140-440); Platelet Estimate Appears Decreased (Adequate)
[2023-05-22 10:58] LABS: Reactive Lymphocytes Moderate
[2023-05-22 11:00] LABS: Hypochromasia Slight (Absent)
[2023-05-22 11:01] LABS: Anisocytosis Slight (Absent)
--- NOTE | 2023-05-23 13:09 | ONC.NURNOTE ---
Lab results reviewed and called to Emmie- noted change in plts and stable Hg Discussed hospice visit from last week Daughters, and Rico were present- and will be meeting with Rosalba and also EVONNE this coming Saturday reports sores are better and Rico more comfortable since given foam pads to cover pain in legs noted when he is up- unchanged daughter bought an ambulatory belt with handles which is helpful for supporting Rico when he is up discussion about continuing labs- if needed-Emmie will call [facility] to schedule labs -plan will be dependant on plan with hospice admisssion
== END 2023-06-13 23:59 | disposition home or self-care (01) ==
LOC: CCIC 09:38
PROVIDERS: PCP Surgery; Referring Provider Surgery; Visit Provider Internal Medicine Hematology & Oncology
DX: C92.00 Acute myeloblastic leukemia, not having achieved remission (principal); D45 Polycythemia vera
CPT/HCPCS: 36415; 85025